=== PATIENT | female | born 1945 | race Caucasian/White ===

== ENCOUNTER 2017-07-04 10:50 | Outpatient (CLI) | payer MEDICARE ==
--- NOTE | 2017-07-04 12:11 | RAD ---
PA AND LATERAL CHEST: History: Dyspnea. FINDINGS: Comparison is made with exam of 03-20-15. The heart size is normal. The lungs are expanded without focal areas of consolidation, pneumothoraces , or pleural effusions. Mild chronic changes are seen. There are degenerative changes in the spine. IMPRESSION: No radiographic evidence of acute cardiopulmonary process. POS: [facility]
== END 2017-07-04 10:51 | disposition home or self-care (01) ==
LOC: RAD 10:50
PROVIDERS: ATTEND Internal Medicine Critical Care Medicine
DX: R06.00 Dyspnea, unspecified (principal)
CPT/HCPCS: 71046

== ENCOUNTER 2017-10-03 10:07 | Outpatient (CLI) | payer MEDICARE ==
--- NOTE | 2017-10-03 10:27 | RAD ---
TWO VIEWS CHEST: Comparison: 03-20-15 History: Dyspnea. FINDINGS: Stable cardiac silhouette. The pulmonary vessels and hilum are normal. Costophrenic angles are clear. Hyperinflation, without consolidation or mass. No pneumothorax or osseous abnormalities. IMPRESSION: Hyperinflation. Chronic changes. POS: [facility]
== END 2017-10-03 10:08 | disposition home or self-care (01) ==
LOC: RAD 10:07
PROVIDERS: ATTEND Internal Medicine Critical Care Medicine
DX: R06.00 Dyspnea, unspecified (principal); J98.4 Other disorders of lung
CPT/HCPCS: 71046

== ENCOUNTER 2018-05-09 10:28 | Outpatient (CLI) | payer MEDICARE ==
--- NOTE | 2018-05-09 12:02 | RAD ---
CHEST PA AND LATERAL: History: 73-year-old female with history of dyspnea. Comparison: 10-03-17 FINDINGS: Patchy somewhat nodular alveolar and interstitial parenchymal changes are noted bilaterally including the upper mid and lower lung zones with some bilateral pleural effusions. Heart size is within naomy l limits. No overt edema or vascular congestion. IMPRESSION: Developing patchy bilateral interstitial and alveolar parenchymal changes certainly raising concern f or the possibility of bilateral pneumonia. Bilateral pleural effusions. Atherosclerosis of the aorta. POS: [facility]
== END 2018-05-09 10:29 | disposition home or self-care (01) ==
LOC: RAD 10:28
PROVIDERS: ATTEND Internal Medicine Critical Care Medicine
DX: R06.00 Dyspnea, unspecified (principal); I70.0 Atherosclerosis of aorta; J90 Pleural effusion, not elsewhere classified
CPT/HCPCS: 36415; 71046; 80048; 85025; 87040

== ENCOUNTER 2018-06-04 09:56 | Outpatient (CLI) | payer MEDICARE ==
--- NOTE | 2018-06-04 12:06 | RAD ---
2 VIEW CHEST: Date: 06/04/18 COMPARISON: 05/09/18. CLINICAL INDICATION: History of dyspnea. Prior pulmonary nodules, follow-up. FINDINGS: Redemonstration of multiple nodular densities throughout each lung, notably at the lateral right mid lung, and the bilateral lower lung zones. These are superimposed upon interstitial prominence. Lungs are hyperinflated. Cardiomediastinal silhouette is stable in size. IMPRESSION: Persistent nodular densities of the chest bilaterally. These may relate to resolving atypical pneumon ia, although the possibility of underlying neoplastic nodularity is not excluded. Continued follow-up is therefore warranted. If the patient does not have symptoms of atypical pneumonia, CT thorax would be indicated. If patient has resolving pneumonia symptoms, recommend continued radiographic follow-u p to confirm clearing of the opacities. CODE T. POS: [facility]
== END 2018-06-04 09:57 | disposition home or self-care (01) ==
LOC: RAD 09:56
PROVIDERS: ATTEND Internal Medicine Critical Care Medicine
DX: R06.00 Dyspnea, unspecified (principal); J98.4 Other disorders of lung
CPT/HCPCS: 71046

== ENCOUNTER 2019-04-04 09:34 | Outpatient (CLI) | payer MEDICARE ==
--- NOTE | 2019-04-04 10:00 | RAD ---
2 view chest: [04/04/2019] Comparion:06/04/2018 HISTORY: Dyspnea FINDINGS: There is a enlarging peripheral area of nodularity within the mid right lung zone, now riley uring approximately 1.7 cm in craniocaudal dimension, previously measuring less than 1 cm in size. No pneumothorax is seen. No large volume pleural effusion is noted. IMPRESSION: Enlarging ill-defined nodular opacity within the mid right lung zone laterally. Given inc reasing conspicuity over a 10 month time period, this raises concern for underlying malignancy. An infectious process is a less likely possibility. Recommend further assessment via CT examination of the chest. CODE T
== END 2019-04-04 09:35 | disposition home or self-care (01) ==
LOC: RAD 09:34
PROVIDERS: ATTEND Internal Medicine Critical Care Medicine
DX: R06.00 Dyspnea, unspecified (principal); R91.8 Other nonspecific abnormal finding of lung field
CPT/HCPCS: 71046

== ENCOUNTER 2019-05-10 09:03 | Outpatient (CLI) | payer MEDICARE ==
--- NOTE | 2019-05-10 09:19 | RAD ---
EXAM: XR Chest Pa Lat @ [facility] PROVIDED CLINICAL HISTORY: Dyspnea COMPARISON: 04/04/2019 FINDINGS: Cardiac and mediastinal silhouette is unchanged in appearance. Diminished conspicuity to the right mi dlung zone parenchymal opacity previously described. The lungs appear otherwise free of significant opacity. There is no pleural fluid or pneumothorax apparent. IMPRESSION: Diminished conspicuity to right midlung zone parenchymal opacity.
== END 2019-05-10 09:04 | disposition home or self-care (01) ==
LOC: RAD 09:03
PROVIDERS: ATTEND Internal Medicine Critical Care Medicine
DX: R06.00 Dyspnea, unspecified (principal); R91.8 Other nonspecific abnormal finding of lung field
CPT/HCPCS: 71046

== ENCOUNTER 2019-10-24 10:17 | Outpatient (CLI) | payer MEDICARE ==
--- NOTE | 2019-10-24 12:15 | RAD ---
TWO VIEW CHEST: HISTORY: Dyspnea. COMPARISON: 05/10/2019. FINDINGS: The lungs appear clear of infiltrate. No evidence of vascular congestion or edema. Heart size naomy l. Osseous structures unremarkable. IMPRESSION: No evidence of acute infiltrate. POS: [facility]
== END 2019-10-24 10:18 | disposition home or self-care (01) ==
LOC: BICRAD 10:17
PROVIDERS: ATTEND Internal Medicine Critical Care Medicine
DX: R06.00 Dyspnea, unspecified (principal)
CPT/HCPCS: 71046

== ENCOUNTER 2020-10-22 08:39 | Outpatient (CLI) | payer MEDICARE | END 2020-10-22 08:40 | disposition home or self-care (01) | LOC: BICRAD 08:39 | PROVIDERS: ATTEND Internal Medicine Critical Care Medicine | DX: R06.00 Dyspnea, unspecified (principal); J44.9 Chronic obstructive pulmonary disease, unspecified; I70.0 Atherosclerosis of aorta | CPT/HCPCS: 71046 ==

== ENCOUNTER 2021-10-21 10:07 | Outpatient (CLI) | payer MEDICARE | END 2021-10-21 10:08 | disposition home or self-care (01) | LOC: RAD 10:07 | PROVIDERS: ATTEND Internal Medicine Critical Care Medicine | DX: R06.00 Dyspnea, unspecified (principal) | CPT/HCPCS: 71046 ==

== ENCOUNTER 2023-01-09 09:10 | Outpatient (CLI) | payer MEDICARE | END 2023-01-09 09:11 | disposition home or self-care (01) | LOC: RAD 09:10 | PROVIDERS: ATTEND Internal Medicine Critical Care Medicine | DX: R06.00 Dyspnea, unspecified (principal) | CPT/HCPCS: 71046 ==

== ENCOUNTER 2023-04-19 10:56 | Outpatient (CLI) | payer MEDICARE | END 2023-04-19 10:57 | disposition home or self-care (01) | LOC: RAD 10:56 | PROVIDERS: ATTEND Internal Medicine Critical Care Medicine | DX: R06.00 Dyspnea, unspecified (principal) | CPT/HCPCS: 71046 ==

== ENCOUNTER 2024-04-29 11:03 | Outpatient (CLI) | payer MEDICARE | END 2024-04-29 11:04 | disposition home or self-care (01) | LOC: RAD 11:03 | PROVIDERS: ATTEND Internal Medicine Critical Care Medicine | DX: R06.00 Dyspnea, unspecified (principal) | CPT/HCPCS: 71046 ==

== ENCOUNTER 2025-04-29 10:29 | Outpatient (CLI) | payer MEDICARE | END 2025-04-29 10:30 | disposition home or self-care (01) | LOC: RAD 10:29 | PROVIDERS: ATTEND Internal Medicine Critical Care Medicine | DX: R06.00 Dyspnea, unspecified (principal) | CPT/HCPCS: 71046 ==